=== PATIENT | female | born 1980 ===

== ENCOUNTER 2016-12-04 13:33 | Observation (INO) | payer OTHER ==
--- NOTE | 2016-12-04 14:24 | OBHP ---
Datetime: 12/04/2016 14:13 IP Adm Impression: , intrauterine IP Adm Impression Other: GDMA1 IP Admit Plan: Observation/Evaluation; Discharge home Admit Comment, IP Provider: 36yo with IUP at 33wks reports here today after evaluation from the clinic. She reported decreased movements. She was sent here by her OB practitioner for NST. NST today is reactive. She denies VB or LOF. Currently feels movements. H[place]ourt- occasional, FHR- Category 1 , Accucheck- 90 Assessment: IUP at 33wks NST Reactive Plan: For BPP D/C home if BPP normal F/U with Regular OB as scheduled. Extremities - PN: Normal Abdomen - PN: Normal Lungs - PN: Normal Heart - PN: Normal General - PN: Normal FHR - Baseline A Provider: 140 Gestation - Est Wks by US: 33.3 EGA AdmitDate IP: 33.3 Vital Signs Provider: Reviewed IP Chief Complaint: Decreased movement NICHD Variability Prov Fetus A: Moderate 6-25bpm NICHD Accel Fetus A IP Provider: 15X15 FHR Category Provider Fetus A: Category I NICHD Decel Fetus A IP Provider: None
[2016-12-04 14:29] VITALS: BMI 33.8
--- NOTE | 2016-12-04 16:45 | US ---
PROCEDURE: Obstetrical ultrasound examination HISTORY: Decreased movements COMPARISON: Not available TECHNIQUE: Transabdominal FINDINGS: The examination demonstrates a single live intrauterine gestation in cephalic presentation. The heart rate is 150 beats per minute. Normal anterior placenta is identified. There is no evidence of placenta previa. The cervix is closed and measures 3.8 cm in length. The amniotic fluid index is 11.3 cm. biometry yields a gestational age by ultrasound of 35 weeks 0 days. The LILIANE is 01/08/2017. The EFW is 2502 g. No gross anatomic abnormality is identified. A biophysical profile examination yields a score of 6 out of 8. movement was diminished. IMPRESSION: Single live intrauterine gestation of approximately 35 weeks 0 days gestational age. cardiac activity detected and heart rate is 150 beats per minute. Anterior placenta. No previa. Cephalic presentation. Cervix closed. Biophysical profile score 6 out of 8.
[2016-12-04] MEDS ORDERED: Betamethasone Soluspan 30 mg/5mL Inj Susp IM STA (20:48)
[2016-12-04 21:36] LABS: BASO % 0.3 % (0.0-2.0); EOS # 0.4 K/uL (0.0-0.7); EOS % 3.3 % (0.0-4.0); HEMATOCRIT 34.5 % (34.0-47.0); LYMPH # 2.6 K/uL (1.0-4.3); LYMPH % 21.8 % (20.0-40.0); MEAN CELL VOLUME 83.2 fL (81.0-99.0); MEAN CORPUSCULAR HEMOGLOBIN 27.7 pg (27.0-31.0); MEAN CORPUSCULAR HGB CONC 33.3 g/dL (33.0-37.0); MEAN PLATELET VOLUME 9.7 fL (7.2-11.7); MONO # 1.1 K/uL (0.0-0.8); MONO % 9.1 % (0.0-10.0); NRBC % 0.2 % (0.0-2.0); RED CELL DISTRIBUTION WIDTH 13.5 % (11.5-14.5); WHITE BLOOD COUNT 11.9 K/uL (4.8-10.8)
[2016-12-04 21:46] LABS: CHLORIDE 103 mmol/L (98-107)
[2016-12-04 21:47] LABS: POTASSIUM 3.9 mmol/L (3.6-5.2); RBC URINE 5 /hpf (0-3); SODIUM 134 mmol/L (132-148); URINE BACTERIA OCC (<OCC); URINE BILIRUBIN NEGATIVE (NEGATIVE); URINE COLOR Yellow (YELLOW); URINE GLUCOSE (UA) 1+ mg/dL (Normal); URINE KETONE NEGATIVE (NEGATIVE); URINE LEUKOCYTE ESTERASE 3+ Leu/uL (Negative); URINE PROTEIN NEGATIVE (NEGATIVE); URINE UROBILINOGEN NORMAL mg/dL (0.2-1.0); WBC URINE 41 /hpf (0-5)
[2016-12-04 21:48] LABS: URINE BLOOD TRACE (NEGATIVE)
[2016-12-04 21:49] LABS: ALB/GLOB RATIO 1.1 (1.0-2.1); AST/SGOT 33 U/L (14-36); BILIRUBIN,TOTAL 0.5 mg/dL (0.2-1.3); BLOOD UREA NITROGEN 8 mg/dL (7-17); CARBON DIOXIDE 20 mmol/L (22-30); GFR AFRICAN-AMERICAN > 60; TOTAL PROTEIN 6.9 g/dL (6.3-8.3)
[2016-12-04 21:50] LABS: ALKALINE PHOSPHATASE 103 U/L (38-126); ALT/SGPT 32 U/L (9-52); CALCIUM 9.6 mg/dl (8.6-10.4); GLUCOSE,RANDOM 136 mg/dL (65-105)
[2016-12-05] MEDS ORDERED: (Novolin R) Insulin Human Regular 100 units/ml vial SC ONE ×3 (07:00→21:25)
--- NOTE | 2016-12-05 10:44 | US ---
PROCEDURE: Obstetrical ultrasound examination and limited biophysical profile. HISTORY: decrease movement COMPARISON: 12/04/2016 TECHNIQUE: Transabdominal FINDINGS: Single live intrauterine gestation in cephalic presentation. heart rate 146 0.25 beats per minute. Anterior placenta. No previa. Cervix closed. Cervix measures 5.0 cm in length. limb motion observed grossly. biometry yields ultrasound age of 35 weeks 1 day. LILIANE by ultrasound is 01/08/2017. EFW is 2761 g. Limited review of anatomy demonstrates no gross abnormality. Four-chamber heart observed. Fluid distends the stomach and urinary bladder. No hydronephrosis. Three-vessel umbilical cord. Anterior abdominal wall intact. Umbilical arterial duplex Doppler yields S/ D ratio of 2.1. Limited biophysical profile examination yields a score of 8 out of 8. IMPRESSION: Biophysical profile score 8 out of 8. Additional findings as above.
[2016-12-05] MEDS ORDERED: Betamethasone Soluspan 30 mg/5mL Inj Susp IM STA (21:23)
[2016-12-06 08:15] VITALS: RESP 18; TEMP 97.8; O2SAT 96
[2016-12-06 19:07] VITALS: BP 114/71; PULSE 91
--- NOTE | 2016-12-07 11:26 | CP.PCM.HP ---
History of Present Illness - History of Present Illness History of Present Illness: 36 yo with Uncontrolled Diabetes admiited with BPP 6/10 Present on Admission - Present on Admission Any Indicators Present on Admission: Yes History of DVT/PE: No History of Uncontrolled Diabetes: Yes Urinary Catheter: No Decubitus Ulcer Present: No History Surgical Site Infection Following: None Past Patient History - Tetanus Immunizations Tetanus Immunization: Unknown - Past Medical History & Family History Past Medical History?: No - Past Social History Smoking Status: Never Smoked Chewing Tobacco Use: No Cigar Use: No Alcohol: Occasional Drugs: Denies Home Situation {Lives}: With Family Domestic Violence: Negative - CARDIAC Hx Cardiac Disorders: No Hx Angina: No Hx Atrial Fibrillation: No Hx Cardia Arrhythmia: No Hx Circulatory Problems: No Hx Congestive Heart Failure: No Hx Heart Attack: No Hx Heart Murmur: No Hx Heart Transplant: No Hx Hypercholesterolemia: No Hx Hypertension: No Hx Hypotension: No Hx Internal Defibrillator: No Hx Mitral Valve Prolapse: No Hx Pacemaker: No Hx Peripheral Edema: No Hx Peripheral Vascular Disease: No - PULMONARY Hx Respiratory Disorders: No Hx Asthma: No Hx Bronchitis: No Hx Chronic Obstructive Pulmonary Disease (COPD): No Hx Emphysema: No Hx Lung Cancer: No Hx Pneumonia: No Hx Pulmonary Edema: No Hx Pulmonary Embolism: No Hx Respiratory Aspiration: No - HEENT Hx HEENT Problems: No Hx Blind: No Hx Cataracts: No Hx Deafness: No Hx Difficulty Chewing: No Hx Epistaxis: No Hx Glaucoma: No Hx Macular Degeneration: No Hx Sinusitis: No - RENAL Hx Chronic Kidney Disease: No Hx Dialysis: No Hx Kidney Stones: No Hx Neurogenic Bladder: No Hx Pyelonephritis: No Hx Renal (Kidney) Cancer: No Hx Renal Failure: No - ENDOCRINE/METABOLIC Hx Endocrine Disorders: No Hx Adrenal Cancer: No Hx Diabetes Insipidus: No Hx Diabetes Mellitus Type 1: No Hx Diabetes Mellitus Type 2: No Hx Hyperthyroidism: No Hx Hypothyroidism: No Hx Systemic Lupus Erythematosus: No Other/Comment: Gestational Diabetes - HEMATOLOGICAL/ONCOLOGICAL Hx Blood Disorders: No Hx AIDS: No Hx Anemia: No Hx Blood Transfusions: No Hx Blood Transfusion Reaction: No Hx Bruising: No Hx Cancer: No Hx Chemotherapy: No Hx Cirrhosis: No Hx Gum Bleeding: No Hx Hemophilia: No Hx Hepatitis A: No Hx Hepatitis B: No Hx Hepatitis C: No Hx Human Immunodeficiency Virus (HIV): No Hx Leukemia: No Hx Lymphoma: No Hx Metastesis: No - PSYCHIATRIC Hx Depression: No Meds Home Medications: Home Medication List Medication Instructions Recorded Confirmed Type metFORMIN [glucOPHAGE] 500 mg PO BID #10 tab 12/06/16 Rx Allergies/Adverse Reactions: Allergies Allergy/AdvReac Type Severity Reaction Status Date / Time No Known Allergies Allergy Verified 12/04/16 14:29 Physical Exam - Constitutional Appears: Well - Head Exam Head Exam: ATRAUMATIC, NORMAL INSPECTION, NORMOCEPHALIC - Eye Exam Eye Exam: EOMI, Normal appearance, PERRL Pupil Exam: NORMAL ACCOMODATION, PERRL - ENT Exam ENT Exam: Mucous Membranes Moist, Normal Exam - Neck Exam Neck exam: Positive for: Normal Inspection - Respiratory Exam Respiratory Exam: Clear to Auscultation Bilateral, NORMAL BREATHING PATTERN - Cardiovascular Exam Cardiovascular Exam: REGULAR RHYTHM - GI/Abdominal Exam GI & Abdominal Exam: Normal Bowel Sounds, Soft. absent: Tenderness - Rectal Exam Rectal Exam: NORMAL INSPECTION - Exam Exam: Circumcision, NORMAL INSPECTION External exam: NORMAL EXTERNAL EXAM Speculum exam: NORMAL SPECULUM EXAM Bimanual exam: NORMAL BIMANUAL EXAM - Extremities Exam Extremities exam: Positive for: normal inspection - Back Exam Back exam: NORMAL INSPECTION - Neurological Exam Neurological exam: Alert, CN II-XII Intact, Normal Gait, Oriented x3, Reflexes Normal - Psychiatric Exam Psychiatric exam: Normal Affect, Normal Mood - Skin Skin Exam: Dry, Intact, Normal Color, Warm Results - Vital Signs Recent Vital Signs: Last Vital Signs Temp 97.8 F 12/06/16 19:06 Pulse 91 H 12/06/16 19:06 Resp 18 12/06/16 19:06 BP 114/71 12/06/16 19:06 Pulse Ox 96 12/06/16 19:06 - Labs Result Diagrams: 12/04/16 21:33 12/04/16 21:33 - Impressions Impression: 1. 36 YO AT 33 wks gestation with Uncontrolled Diabetes 2. BPP 09/03 3. Steroid Injection for Lung Maturity Assessment & Plan (1) Gestational diabetes mellitus (GDM) affecting Status: Acute Priority: High - Assessment and Plan (Free Text) Assessment: 36 YO with GDM A1 BPP 09/05 Plan: Repeat BPP Nst Prolong monitoring Steroid for lung maturity - Date & Time Date: 12/04/16 Time: 23:00 Decision To Admit - . Bed Request Type: VERIFIER
--- NOTE | 2016-12-07 11:37 | PCM.IRP ---
Chief Complaint: 36 yo with Uncontrolled Diabetes, BPP 6/10 History of Present Illness - History of Present Illness History of Present Illness: GDMA2 Subjective - Subjective Subjective: Patient feels better. She is feeling the baby move Review of Systems - Constitutional Constitutional: UN - EENT Eyes: UNREMARKABLE Ears: UNREMARKABLE Nose/Mouth/Throat: UNREMARKABLE - Breasts Breasts: UNREMARKABLE - Cardiovascular Cardiovascular: UNREMARKABLE - Respiratory Respiratory: UNREMARKABLE - Gastrointestinal Gastrointestinal: UNREMARKABLE - Genitourinary Genitourinary: UNREMARKABLE - Reproductive: Female Reproductive:Female: UNREMARKABLE - Menstruation Menstruation: UNREMARKABLE - Musculoskeletal Musculoskeletal: UNREMARKABLE - Integumentary Integumentary: UNREMARKABLE - Neurological Neurological: UNREMARKABLE - Psychiatric Psychiatric: UNREMARKABLE - Endocrine Endocrine: UNREMARKABLE - Hematologic/Lymphatic Hematologic: UNREMARKABLE Objective - Vital Signs/Intake and Output Vital Signs (last 24 hours): Vital Signs - 24 hr 12/06/16 19:06 Temperature 97.8 F Pulse Rate 91 H Respiratory 18 Rate Blood Pressure 114/71 O2 Sat by Pulse 96 Oximetry - Head Exam Head Exam: ATRAUMATIC, NORMAL INSPECTION, NORMOCEPHALIC - Eye Exam Eye Exam: EOMI, Normal appearance, PERRL Pupil Exam: NORMAL ACCOMODATION, PERRL - GI/Abdominal Exam GI & Abdominal Exam: Normal Bowel Sounds - Rectal Exam Rectal Exam: NORMAL INSPECTION - Exam Exam: Circumcision, NORMAL INSPECTION External exam: NORMAL EXTERNAL EXAM Speculum exam: NORMAL SPECULUM EXAM Bimanual exam: NORMAL BIMANUAL EXAM - Neurological Exam Neurological exam: Alert, CN II-XII Intact, Normal Gait, Oriented x3, Reflexes Normal - Psychiatric Exam Psychiatric exam: Normal Affect, Normal Mood - Skin Skin Exam: Dry, Intact, Normal Color, Warm Assessment/Plan (1) Gestational diabetes mellitus (GDM) affecting Status: Acute Priority: High - Assessment and Plan (Free Text) Assessment: 36 yo with Uncontrolled Diabestes GDM A2 STARTED Medformin 500 BID Plan: Continue current treatment - Date & Time Date: 12/05/16 Time: 10:50
--- NOTE | 2016-12-07 11:40 | CP.PCM.PN ---
Subjective - Date & Time of Evaluation Date of Evaluation: 12/06/16 Time of Evaluation: 11:39 - Subjective Subjective: 36 yo S/P GDMA2 Objective - Vital Signs/Intake and Output Vital Signs (last 24 hours): Temp Pulse Resp BP Pulse Ox 97.8 F 91 H 18 114/71 96 12/06/16 19:06 12/06/16 19:06 12/06/16 19:06 12/06/16 19:06 12/06/16 19:06 - Constitutional Appears: Well - Head Exam Head Exam: ATRAUMATIC, NORMAL INSPECTION, NORMOCEPHALIC - Eye Exam Eye Exam: EOMI, Normal appearance, PERRL Pupil Exam: NORMAL ACCOMODATION, PERRL - ENT Exam ENT Exam: Mucous Membranes Moist, Normal Exam - Neck Exam Neck Exam: Full ROM, Normal Inspection. absent: Lymphadenopathy - Respiratory Exam Respiratory Exam: Clear to Ausculation Bilateral, NORMAL BREATHING PATTERN - Cardiovascular Exam Cardiovascular Exam: REGULAR RHYTHM, +S1, +S2. absent: Murmur - GI/Abdominal Exam GI & Abdominal Exam: Soft, Normal Bowel Sounds. absent: Tenderness - Rectal Exam Rectal Exam: NORMAL INSPECTION - Exam Exam: Circumcision, NORMAL INSPECTION External exam: NORMAL EXTERNAL EXAM Speculum exam: NORMAL SPECULUM EXAM Bimanual exam: NORMAL BIMANUAL EXAM - Extremities Exam Extremities Exam: Full ROM, Normal Capillary Refill, Normal Inspection. absent : Joint Swelling, Pedal Edema - Back Exam Back Exam: NORMAL INSPECTION - Neurological Exam Neurological Exam: Alert, Awake, CN II-XII Intact, Normal Gait, Oriented x3 - Psychiatric Exam Psychiatric exam: Normal Affect, Normal Mood - Skin Skin Exam: Dry, Intact, Normal Color, Warm Assessment and Plan (1) Gestational diabetes mellitus (GDM) affecting Status: Acute - Assessment and Plan (Free Text) Assessment: 36 yo GDMA2 Plan: Discharge home with Metformin 500 mg BID BPP on Wednesday
== END 2016-12-06 13:30 | disposition home or self-care (01) ==
LOC: C.EROB 13:33 → C.4D 21:34 → UNDOADMIN 21:34 → C.4D 21:36 → C.4M 12-05 22:46
PROVIDERS: ADMIT Obstetrics & Gynecology; ATTEND Obstetrics & Gynecology
DX: O24.419 Gestational diabetes mellitus in pregnancy, unspecified control (principal); Z3A.33 33 weeks gestation of pregnancy
CPT/HCPCS: 76815; 76818; 80053; 81001; 82948; 83036; 85025; G0378; J0702

== ENCOUNTER 2016-12-22 14:22 | Emergency (ER) | payer OTHER ==
[2016-12-22 19:42] VITALS: BP 114/79; PULSE 87; RESP 18; TEMP 97.9
--- NOTE | 2016-12-22 20:20 | OBHP ---
Datetime: 12/22/2016 15:16 IP Adm Impression Other: nst reactive IP Admit Plan: Discharge home Admit Comment, IP Provider: chief complaint- evalaution HPI Patient at [address] bradley for nst due to gestational diabetes cousre complicated by AMA; GDM Exam see exam section A/P Patient here for nst at 36 wfa due to ama and fdm -nst reactive -patient discharegd home follow up with dr bradley in 3 days Pelvic Type - PN: Adequate Extremities - PN: Normal Abdomen - PN: Normal Back - PN: Normal Lungs - PN: Normal Heart - PN: Normal Neurologic - PN: Normal General - PN: Normal Contraction Comments Provider: occ Gestation - Est Wks by US: 35.0 EGA AdmitDate IP: 36.0 Vital Signs Provider: Reviewed; Within Normal Limits IP Chief Complaint: evaluation FHR Category Provider Fetus A: Category I Genitourinary Exam: Normal DTRs - PN: Normal
== END 2016-12-22 15:35 | disposition home or self-care (01) ==
LOC: C.EROB 14:22
DX: Z36 Encounter for antenatal screening of mother (principal)

== ENCOUNTER 2016-12-30 17:53 | Inpatient (IN) | payer OTHER ==
[2016-12-30 18:22] VITALS: BMI 35.1
[2016-12-30] MEDS ORDERED: Nalbuphine 20 mg/ml Inj (1 ml) IVP PRN (18:30)
[2016-12-30] MEDS ORDERED: Lactated Ringer's 1,000 ML IV SCH (18:30)
[2016-12-30 18:53] LABS: BASO # 0.1 K/uL (0.0-0.2); BASO % 0.6 % (0.0-2.0); EOS # 0.4 K/uL (0.0-0.7); EOS % 3.9 % (0.0-4.0); HEMATOCRIT 36.2 % (34.0-47.0); LYMPH # 2.7 K/uL (1.0-4.3); LYMPH % 24.2 % (20.0-40.0); MEAN CELL VOLUME 83.3 fL (81.0-99.0); MEAN CORPUSCULAR HEMOGLOBIN 28.3 pg (27.0-31.0); MEAN PLATELET VOLUME 10.4 fL (7.2-11.7); MONO # 0.9 K/uL (0.0-0.8); MONO % 7.9 % (0.0-10.0); RED CELL DISTRIBUTION WIDTH 14.3 % (11.5-14.5)
--- NOTE | 2016-12-30 18:54 | OBADHP ---
Datetime: 12/30/2016 18:47 Admit Comment, IP Provider: g1po at 37+weeks here for induction send by dr bradley approved by Dr Lori ibarra,no ctxs, vb, lof,+fm obhx primi pmh gdma2 med metfomin all nkda psh den soch de ve closed/20/-3 a/p at 37weeks/gdma2 /macrosomia admit to l_d npo/ivf labs cervidil gbs prophylaxsis cont joe and efm anticpate Pelvic Type - PN: Adequate Extremities - PN: Normal Abdomen - PN: Normal Back - PN: Normal Breast - PN: Normal Lungs - PN: Normal Heart - PN: Normal Thyroid - PN: Normal Neurologic - PN: Normal HEENT - PN: Normal General - PN: Normal FHR - Baseline A Provider: 130 Contraction Comments Provider: nne Comments, ACOG Physical Exam: gravid,non tender ext no edema,no calf ten IP Hx Assessment: The History has been Reviewed and is Current Vital Signs Provider: Reviewed; Within Normal Limits IP Chief Complaint: Uterine contractions; Decreased movement NICHD Variability Prov Fetus A: Moderate 6-25bpm NICHD Accel Fetus A IP Provider: 15X15 FHR Category Provider Fetus A: Category I Dilatation, Provider: 0 Effacement, Provider: 30 Station, Provider: -3 Genitourinary Exam: Normal DTRs - PN: Normal IP Adm Impression: Term, intrauterine IP Admit Plan: Admit to unit; Initiate labor induction protocol Datetime: 12/22/2016 15:16 IP Adm Impression Other: nst reactive Gestation - Est Wks by US: 35.0 EGA AdmitDate IP: 36.0 Datetime: 12/04/2016 14:13 NICHD Decel Fetus A IP Provider: None
[2016-12-30 19:02] LABS: CHLORIDE 100 mmol/L (98-107); POTASSIUM 3.6 mmol/L (3.6-5.2); SODIUM 131 mmol/L (132-148)
[2016-12-30 19:04] LABS: ALB/GLOB RATIO 1.1 (1.0-2.1); AST/SGOT 28 U/L (14-36); BILIRUBIN,TOTAL 0.6 mg/dL (0.2-1.3); CARBON DIOXIDE 21 mmol/L (22-30); GFR AFRICAN-AMERICAN > 60; TOTAL PROTEIN 7.2 g/dL (6.3-8.3)
[2016-12-30 19:05] LABS: ALKALINE PHOSPHATASE 133 U/L (38-126); ALT/SGPT 29 U/L (9-52); BLOOD UREA NITROGEN 9 mg/dL (7-17); CALCIUM 9.5 mg/dl (8.6-10.4); GLUCOSE,RANDOM 132 mg/dL (65-105)
[2016-12-30 20:48] LABS: RBC URINE < 1 /hpf (0-3); URINE BILIRUBIN NEGATIVE (NEGATIVE); URINE BLOOD NEGATIVE (NEGATIVE); URINE COLOR Yellow (YELLOW); URINE GLUCOSE (UA) NORMAL (Normal); URINE KETONE NEGATIVE (NEGATIVE); URINE LEUKOCYTE ESTERASE TRACE Leu/uL (Negative); URINE PROTEIN NEGATIVE (NEGATIVE); URINE UROBILINOGEN NORMAL mg/dL (0.2-1.0); WBC URINE < 1 /hpf (0-5)
[2016-12-31] MEDS ORDERED: Nalbuphine 20 mg/ml Inj (1 ml) ONE (03:11)
[2016-12-31] MEDS ORDERED: Penicillin G 5 Million Unit Vial IVPB ONE ×2 (10:51→11:35)
[2016-12-31] MEDS ORDERED: Oxytocin 30 UNIT 30 UNITS/500 ML BAG IV PRN (14:01)
[2016-12-31] MEDS ORDERED: Oxytocin 30 UNIT 30 UNITS/500 ML BAG IV ONE (14:11)
[2016-12-31] MEDS ORDERED: Sodium Citrate/Citric Acid 15 ml Sol ONE (18:21)
[2016-12-31] MEDS ORDERED: cefOXitin IV 2 gm in Dextrose 2 GM/50 ML BAG IVPB ONE ×2 (18:23→18:49)
[2016-12-31] MEDS ORDERED: Morphine 1 mg/ml preservative-free Inj(Duramorph) ONE (18:29)
[2016-12-31] MEDS ORDERED: Midazolam 2 MG/2 ML VIAL ONE (18:35)
[2016-12-31] MEDS ORDERED: Sodium Citrate/Citric Acid 15 ml Sol PO STA (18:36)
[2016-12-31] MEDS ORDERED: Oxytocin 20 units in LR 2,000 ML IV ONE (18:45)
[2016-12-31] MEDS ORDERED: Oxytocin 10 Units/ml Inj ONE (19:20)
[2016-12-31] MEDS ORDERED: DiphenhydrAMINE 50 mg/ml Inj IVP PRN (20:21)
[2017-01-01 09:05] LABS: BASO # 0.1 K/uL (0.0-0.2); BASO % 0.7 % (0.0-2.0); EOS # 0.1 K/uL (0.0-0.7); EOS % 0.5 % (0.0-4.0); HEMATOCRIT 35.1 % (34.0-47.0); LYMPH # 1.1 K/uL (1.0-4.3); LYMPH % 9.2 % (20.0-40.0); MEAN CELL VOLUME 84.1 fL (81.0-99.0); MEAN CORPUSCULAR HGB CONC 33.3 g/dL (33.0-37.0); MEAN PLATELET VOLUME 10.2 fL (7.2-11.7); MONO # 0.9 K/uL (0.0-0.8); MONO % 7.5 % (0.0-10.0); PLATELET COUNT 162 K/uL (130-400); RED CELL DISTRIBUTION WIDTH 13.9 % (11.5-14.5)
[2017-01-01] MEDS: Prenatal Multivit/Folic Acid/Iron Tab PO SCH (09:36)
[2017-01-01] MEDS: Folic Acid/Ascorbic Acid/Ferrous Sulfate 1 Tab PO SCH (09:36)
[2017-01-01] MEDS: Simethicone 80 mg Chewtab PO SCH ×3 (09:36→17:47)
[2017-01-01] MEDS: Oxycodone/Acetaminophen 5/325 mg Tab PO PRN (09:39)
[2017-01-01 09:54] LABS: EOSINOPHIL 1 % (0-4); NEUTROPHIL 85 % (50-75); TOTAL CELLS COUNTED 100
[2017-01-01 22:27] LABS: URINE BILIRUBIN NEGATIVE (NEGATIVE); URINE COLOR Straw (YELLOW); URINE GLUCOSE (UA) NORMAL (Normal); URINE KETONE NEGATIVE (NEGATIVE); URINE LEUKOCYTE ESTERASE 1+ Leu/uL (Negative); URINE PROTEIN NEGATIVE (NEGATIVE); URINE UROBILINOGEN NORMAL mg/dL (0.2-1.0); WBC URINE 6 /hpf (0-5)
[2017-01-01 22:33] LABS: RBC URINE 4 /hpf (0-3)
[2017-01-01 22:35] LABS: URINE BLOOD 2+ (NEGATIVE)
[2017-01-02] MEDS: Simethicone 80 mg Chewtab PO SCH ×4 (00:56→21:27)
[2017-01-02] MEDS: Oxycodone/Acetaminophen 5/325 mg Tab PO PRN ×2 (04:40→17:08)
[2017-01-02 08:08] LABS: BASO % 0.3 % (0.0-2.0); EOS # 0.2 K/uL (0.0-0.7); EOS % 1.7 % (0.0-4.0); HEMATOCRIT 32.8 % (34.0-47.0); LYMPH # 1.7 K/uL (1.0-4.3); LYMPH % 13.3 % (20.0-40.0); MEAN CELL VOLUME 83.7 fL (81.0-99.0); MEAN CORPUSCULAR HEMOGLOBIN 28.6 pg (27.0-31.0); MEAN CORPUSCULAR HGB CONC 34.1 g/dL (33.0-37.0); MEAN PLATELET VOLUME 9.6 fL (7.2-11.7); MONO # 1.1 K/uL (0.0-0.8); MONO % 8.2 % (0.0-10.0); RED CELL DISTRIBUTION WIDTH 14.4 % (11.5-14.5); WHITE BLOOD COUNT 12.8 K/uL (4.8-10.8)
[2017-01-02] MEDS ORDERED: Influenza Vaccine 60 mcg/0.5 mL SYR (4YR UP) IM ONE (08:51)
[2017-01-02] MEDS: Folic Acid/Ascorbic Acid/Ferrous Sulfate 1 Tab PO SCH (09:16)
[2017-01-02] MEDS: Prenatal Multivit/Folic Acid/Iron Tab PO SCH (09:16)
[2017-01-03] MEDS: Oxycodone/Acetaminophen 5/325 mg Tab PO PRN (01:30)
[2017-01-03 08:18] VITALS: PULSE 74; RESP 18; TEMP 97.7; O2SAT 99
[2017-01-03] MEDS: Folic Acid/Ascorbic Acid/Ferrous Sulfate 1 Tab PO SCH (10:32)
[2017-01-03] MEDS: Prenatal Multivit/Folic Acid/Iron Tab PO SCH (10:33)
[2017-01-03] MEDS: Simethicone 80 mg Chewtab PO SCH ×3 (10:35→17:58)
--- NOTE | 2017-01-03 17:38 | CP.PCM.DIS ---
Provider - Provider Date of Admission: 12/30/16 18:23 Attending physician: Geraldine Maki MD Primary care physician: Dr. Maki Time Spent in preparation of Discharge (in minutes): 40 Diagnosis - Discharge Diagnosis (1) S/P Status: Acute Hospital Course - Lab Results Lab Results: Micro Results 01/01/17 22:52 Urine,Clean Catch Urine Culture - Final Enterobacter Cloacae Ssp Cloac Most Recent Lab Values WBC 12.8 K/uL (4.8-10.8) H 01/02/17 07:52 RBC 3.91 Mil/uL (3.80-5.20) 01/02/17 07:52 Hgb 11.2 g/dL (11.0-16.0) 01/02/17 07:52 Hct 32.8 % (34.0-47.0) L 01/02/17 07:52 MCV 83.7 fL (81.0-99.0) 01/02/17 07:52 MCH 28.6 pg (27.0-31.0) 01/02/17 07:52 MCHC 34.1 g/dL (33.0-37.0) 01/02/17 07:52 RDW 14.4 % (11.5-14.5) 01/02/17 07:52 Plt Count 186 K/uL (130-400) 01/02/17 07:52 MPV 9.6 fL (7.2-11.7) 01/02/17 07:52 Neut % (Auto) 76.5 % (50.0-75.0) H 01/02/17 07:52 Lymph % (Auto) 13.3 % (20.0-40.0) L 01/02/17 07:52 [place] % (Auto) 8.2 % (0.0-10.0) 01/02/17 07:52 Eos % (Auto) 1.7 % (0.0-4.0) 01/02/17 07:52 Baso % (Auto) 0.3 % (0.0-2.0) 01/02/17 07:52 Neut # 9.8 K/uL (1.8-7.0) H 01/02/17 07:52 Lymph # 1.7 K/uL (1.0-4.3) 01/02/17 07:52 [place] # 1.1 K/uL (0.0-0.8) H 01/02/17 07:52 Eos # 0.2 K/uL (0.0-0.7) 01/02/17 07:52 Baso # 0.0 K/uL (0.0-0.2) 01/02/17 07:52 Neutrophils % (Manual) 85 % (50-75) H 01/01/17 09:00 Band Neutrophils % 4 % (0-2) H 01/01/17 09:00 Lymphocytes % (Manual) 5 % (20-40) L 01/01/17 09:00 Monocytes % (Manual) 5 % (0-10) 01/01/17 09:00 Eosinophils % (Manual) 1 % (0-4) 01/01/17 09:00 Platelet Estimate Normal (NORMAL) 01/01/17 09:00 Sodium 131 mmol/L (132-148) L 12/30/16 18:50 Potassium 3.6 mmol/L (3.6-5.2) 12/30/16 18:50 Chloride 100 mmol/L (98-107) 12/30/16 18:50 Carbon Dioxide 21 mmol/L (22-30) L 12/30/16 18:50 Anion Gap 14 (10-20) 12/30/16 18:50 BUN 9 mg/dL (7-17) 12/30/16 18:50 Creatinine 0.7 mg/dL (0.7-1.2) 12/30/16 18:50 Est GFR ( Amer) > 60 12/30/16 18:50 Est GFR (Non-Af Amer) > 60 12/30/16 18:50 POC Glucose (mg/dL) 74 mg/dL (65-110) 12/31/16 14:32 Random Glucose 132 mg/dL (65-105) H 12/30/16 18:50 Calcium 9.5 mg/dl (8.6-10.4) 12/30/16 18:50 Total Bilirubin 0.6 mg/dL (0.2-1.3) 12/30/16 18:50 AST 28 U/L (14-36) 12/30/16 18:50 ALT 29 U/L (9-52) 12/30/16 18:50 Alkaline Phosphatase 133 U/L (38-126) H D 12/30/16 18:50 Total Protein 7.2 g/dL (6.3-8.3) 12/30/16 18:50 Albumin 3.7 g/dL (3.5-5.0) 12/30/16 18:50 Globulin 3.5 gm/dL (2.2-3.9) 12/30/16 18:50 Albumin/Globulin Ratio 1.1 (1.0-2.1) 12/30/16 18:50 Urine Color Straw (YELLOW) 01/01/17 22:20 Urine Clarity Clear (Clear) 01/01/17 22:20 Urine pH 6.0 (5.0-8.0) 01/01/17 22:20 Ur Specific [place] 1.003 (1.003-1.030) 01/01/17 22:20 Urine Protein Negative mg/dL (NEGATIVE) 01/01/17 22:20 Urine Glucose (UA) Normal mg/dL (Normal) 01/01/17 22:20 Urine Ketones Negative mg/dL (NEGATIVE) 01/01/17 22:20 Urine Blood 2+ (NEGATIVE) H 01/01/17 22:20 Urine Nitrate Negative (NEGATIVE) 01/01/17 22:20 Urine Bilirubin Negative (NEGATIVE) 01/01/17 22:20 Urine Urobilinogen Normal mg/dL (0.2-1.0) 01/01/17 22:20 Ur Leukocyte Esterase 1+ [place]/uL (Negative) H 01/01/17 22:20 Urine WBC (Auto) 6 /hpf (0-5) H 01/01/17 22:20 Urine RBC (Auto) 4 /hpf (0-3) H 01/01/17 22:20 Ur Squamous Epith Cells < 1 /hpf (0-5) 01/01/17 22:20 RPR Nonreactive (NONREACTIVE) 12/30/16 18:50 Hep Bs Antibody Negative (NEGATIVE) 12/31/16 08:39 HIV 1&2 Antibody Screen Negative (NEGATIVE) 12/30/16 20:41 Blood Type O POSITIVE 12/30/16 18:50 Antibody Screen Negative 12/30/16 18:50 - Date & Time of H&P Date of H&P: 12/31/16 Discharge Exam - Head Exam Head Exam: ATRAUMATIC, NORMAL INSPECTION, NORMOCEPHALIC - Eye Exam Eye Exam: EOMI, Normal appearance, PERRL Pupil Exam: NORMAL ACCOMODATION, PERRL - GI/Abdominal Exam GI & Abdominal Exam: Normal Bowel Sounds - Rectal Exam Rectal Exam: NORMAL INSPECTION - Exam Exam: Circumcision, NORMAL INSPECTION External exam: NORMAL EXTERNAL EXAM Speculum exam: NORMAL SPECULUM EXAM Bimanual exam: NORMAL BIMANUAL EXAM - Neurological Exam Neurological exam: Alert, CN II-XII Intact, Normal Gait, Oriented x3, Reflexes Normal - Psychiatric Exam Psychiatric exam: Normal Affect, Normal Mood - Skin Skin Exam: Dry, Intact, Normal Color, Warm Discharge Plan - Follow Up Plan Condition: GOOD Disposition: HOME/ ROUTINE Patient education suggested?: Yes Instructions: Depression (GEN), Caring for Your Baby (DC), Your Baby (DC), How to Increase Your Milk Supply (DC), and Your Diet (DC), Jaundice in Newborns (DC), Wound Healing and Your Diet (DC)
--- NOTE | 2017-01-03 17:41 | PCM.SURG1 ---
Surgeon's Initial Post Op Note - Surgeon's Notes Surgeon: Dr Maki Plug Machine Operator: Dr. Lindsey Type of Anesthesia: Spinal Anesthesia Administered By: Dr. Diaz Pre-Operative Diagnosis: 36 yo at 37 wks gestation with Uncontrolled Gestational Diabetes, Suspected Macrosomia, Failure of Induction Operative Findings: Primary LTCS Post-Operative Diagnosis: sAME ABOVE Operation Performed: Primary Ltcs Specimen/Specimens Removed: Cord ph. placenta Estimated Blood Loss: EBL {In ML}: 600 Blood Products Given: N/A Drains Used: No Drains Post-Op Condition: Good Date of Surgery/Procedure: 12/31/16 Time of Surgery/Procedure: 09:00
[2017-01-03 23:14] VITALS: BP 98/70
== END 2017-01-03 18:30 | disposition home or self-care (01) | DRG 651 ==
LOC: C.EROB 17:53 → C.4D 18:23 → C.4M 01-01 08:52
PROVIDERS: ADMIT Obstetrics & Gynecology; ATTEND Obstetrics & Gynecology
PROC: 10D00Z1 Extraction of Products of Conception, Low, Open Approach (ICD-10-PCS; principal; 2016-12-31)
PROC: 3E0P7GC Introduction of Other Therapeutic Substance into Female Reproductive, Via Natural or Artificial Opening (ICD-10-PCS; 2016-12-31)
DX: O24.429 Gestational diabetes mellitus in childbirth, unspecified control (principal); O36.8130 Decreased fetal movements, third trimester, not applicable or unspecified; O36.63X0 Maternal care for excessive fetal growth, third trimester, not applicable or unspecified; O61.1 Failed instrumental induction of labor; Z3A.37 37 weeks gestation of pregnancy; Z37.0 Single live birth

== ENCOUNTER 2017-03-05 16:06 | Emergency (ER) | payer OTHER ==
[2017-03-05 16:06] VITALS: BMI 35.1
[2017-03-05 16:11] VITALS: BP 135/85; PULSE 82; RESP 19; TEMP 97.9; O2SAT 97
--- NOTE | 2017-03-05 16:43 | C.PDOC ---
History Of Present Illness NEW ONSET REDNESS, SWELLING SUPRAPUB AREA "NEAR CSECTION SITE" X 3 DAYS. NO FEVER. HO GESTATIONAL DM. NO DC EXAM NONTOXIC SKIN +ERYTHEMA W POSSIBLE ABSCESS VS FIRM INDURATION BELOW CSECT INCISION + CELLULITIS INCLUDING INCISION WOUND. NO DEHISC REMAINDER NEG Time Seen by Provider: 03/05/17 16:38 Chief Complaint (Nursing): Abnormal Skin Integrity History Per: Patient History/Exam Limitations: no limitations Onset/Duration Of Symptoms: Days (3 days) Past Medical History Reviewed: Historical Data, Nursing Documentation, Vital Signs Vital Signs: Last Vital Signs Temp 97.9 F 03/05/17 16:10 Pulse 82 03/05/17 16:10 Resp 19 03/05/17 16:10 BP 135/85 03/05/17 16:10 Pulse Ox 97 03/05/17 17:06 - [facility] Procedures EXTRACTION OF POC, LOW CERVICAL, OPEN APPROACH (12/30/16) INTRODUCE OF OTH THERAP SUBST INTO FEM REPROD, VIA OPENING (12/30/16) Family History: States: No Known Family Hx - Social History Hx Alcohol Use: No Hx Substance Use: No - Immunization History Hx Influenza Vaccination: Yes Hx Pneumococcal Vaccination: Yes Review Of Systems Except As Marked, All Systems Reviewed And Found Negative. Constitutional: Negative for: Fever Genitourinary: Negative for: Dysuria, Vaginal Discharge Skin: Positive for: Other (Redness and swelling to the suprapubic area) Physical Exam - Physical Exam Appears: Non-toxic, No Acute Distress Skin: Warm, Dry, No Rash, Other ((+) Erythema with possible abscess vs firm induration below incision. Cellulitis including incision wound. No dehiscence.) Head: Atraumatic, Normacephalic Gastrointestinal/Abdominal: Soft, No Tenderness, No Guarding, No Rebound Extremity: Normal ROM, No Swelling Neurological/Psych: Oriented x3, Normal Speech, Normal Motor ED Course And Treatment O2 Sat by Pulse Oximetry: 97 (RA) Pulse Ox Interpretation: Normal Progress - Re-Evaluation Re-evaluation Note: 03/05/17 16:43 D/W DR CHOWDHURY AWARE OF ER FINDINGS, WILL EVAL IN ER 03/05/17 17:04 D/W DR CHOWDHURY S/P ASPIRATION, NO DC. DC ABX, FU PT OBGYN - Data Reviewed Data Reviewed: Old records - Continuity of Care Discussed pt. case with store sales consultant/specialty: Obstetrics/Gynecology Medical Decision Making Medical Decision Making: PLAN: * Bactrim PO * Keflex PO Disposition Counseled Patient/Family Regarding: Diagnosis, Need For Followup, Rx Given - Disposition Referrals: YOUR,PMD [Other] Disposition: HOME/ ROUTINE Disposition Time: 17:05 Condition: GOOD Prescriptions: Cephalexin [cephalexin] 500 mg PO BID #14 cap Sulfamethoxazole/Trimethoprim [Bactrim DS 800 mg-160 mg] 1 tab PO BID #14 tab Instructions: Cellulitis (ED) Forms: [employer] (Libyan) - Clinical Impression Clinical Impression: Cellulitis - Scribe Statement The provider has reviewed the documentation as recorded by the Nicolasa Alexandre Provider Attestation: All medical record entries made by the Nicolasa were at my direction and personally dictated by me. I have reviewed the chart and agree that the record accurately reflects my personal performance of the history, physical exam, medical decision making, and the department course for this patient. I have also personally directed, reviewed, and agree with the discharge instructions and disposition.
[2017-03-05] MEDS ORDERED: Tmp-Smz 800 mg-160 mg DS Tab PO STA (17:07)
[2017-03-05] MEDS ORDERED: Tmp-Smz 800 mg-160 mg DS Tab ONE (17:15)
--- NOTE | 2017-03-05 17:26 | CP.PCM.CON ---
History of Present Illness - History of Present Illness History of Present Illness: 36 year old s/p PLTCD at 37 weeks due to failed induction of labor on presents to the ED for area of swelling by her pfanenstial incision. at that time was complicated by GDMA2 and suspected macrosomia. Patient states that the swelling and redness started 3 days ago and has gotten worse. Swelling is associated with pain. Took motrin 800mg today for pain. Offers no other complaints at this time. States that she followed up with Dr Maki at both her 1 week and 6 week visit, at that time everything was normal. Denies fevers, chills, drainage, headaches, dizziness, cp, palpitations, sob, urinary symptoms, changes in bowel habits. OBGYN: Dr Maki Allergies: NKDA Medications: Denies Medical Hx: Asthma Surgical Hx: C/S x 1 Social Hx: Denies alcohol, tobacco, drug use Family Hx: Non-contributory Review of Systems - Constitutional Constitutional: absent: Chills, Fever - EENT Eyes: absent: Change in Vision - Cardiovascular Cardiovascular: absent: Chest Pain, Dyspnea, Palpitations - Respiratory Respiratory: absent: Cough, Wheezing - Gastrointestinal Gastrointestinal: absent: Constipation, Diarrhea, Nausea, Vomiting Additional comments: Pain at incision site - Genitourinary Genitourinary: absent: Dysuria - Neurological Neurological: absent: Dizziness, Headaches Past Patient History - Infectious Disease Hx of Infectious Diseases: None - Tetanus Immunizations Tetanus Immunization: Unknown - Past Medical History & Family History Past Medical History?: No - Past Social History Smoking Status: Never Smoked - CARDIAC Hx Atrial Fibrillation: No Hx Cardia Arrhythmia: No Hx Congestive Heart Failure: No Hx Hypercholesterolemia: No Hx Hypertension: No Hx Mitral Valve Prolapse: No Hx Pacemaker: No Hx Peripheral Edema: No - PULMONARY Hx Asthma: No Hx Bronchitis: No Hx Chronic Obstructive Pulmonary Disease (COPD): No Hx Emphysema: No Hx Pneumonia: No Hx Pulmonary Embolism: No - HEENT Hx HEENT Problems: No Hx Blind: No Hx Cataracts: No Hx Deafness: No Hx Difficulty Chewing: No Hx Epistaxis: No Hx Glaucoma: No Hx Macular Degeneration: No - RENAL Hx Chronic Kidney Disease: No Hx Kidney Stones: No - ENDOCRINE/METABOLIC Hx Hyperthyroidism: No Hx Hypothyroidism: No - HEMATOLOGICAL/ONCOLOGICAL Hx Anemia: No Hx Human Immunodeficiency Virus (HIV): No - PSYCHIATRIC Hx Depression: No Hx Substance Use: No - SURGICAL HISTORY Hx Surgeries: Yes Hx Section: Yes - ANESTHESIA Hx Anesthesia: Yes Hx Anesthesia Reactions: No Meds Home Medications: Home Medication List Medication Instructions Recorded Confirmed Type Cephalexin [cephalexin] 500 mg PO BID #14 cap 03/05/17 Rx Sulfamethoxazole/Trimethoprim 1 tab PO BID #14 tab 03/05/17 Rx [Bactrim DS 800 mg-160 mg] Allergies/Adverse Reactions: Allergies Allergy/AdvReac Type Severity Reaction Status Date / Time No Known Allergies Allergy Verified 03/05/17 16:11 Physical Exam - Constitutional Appears: Well, Non-toxic, No Acute Distress - Head Exam Head Exam: ATRAUMATIC, NORMAL INSPECTION - Eye Exam Eye Exam: EOMI, Normal appearance - ENT Exam ENT Exam: Mucous Membranes Moist - Respiratory Exam Respiratory Exam: NORMAL BREATHING PATTERN - Cardiovascular Exam Cardiovascular Exam: REGULAR RHYTHM - GI/Abdominal Exam GI & Abdominal Exam: Soft Additional comments: Tenderness at inferior aspect of pfannenstial incision. Area of induration and erythema noted. Incision intact with no active draining. Unable to aspirate any fluid. - Extremities Exam Extremities exam: Positive for: normal inspection - Back Exam Back exam: NORMAL INSPECTION - Neurological Exam Neurological exam: Normal Gait, Oriented x3 - Psychiatric Exam Psychiatric exam: Normal Affect, Normal Mood - Skin Skin Exam: Dry, Normal Color, Warm Results - Vital Signs Recent Vital Signs: Last Vital Signs Temp 97.9 F 03/05/17 16:10 Pulse 82 03/05/17 16:10 Resp 19 03/05/17 16:10 BP 135/85 03/05/17 16:10 Pulse Ox 97 03/05/17 17:06 - Labs Labs: Laboratory Results - last 24 hr 03/05/17 16:45 POC Glucose (mg/dL) 109 Assessment & Plan - Assessment and Plan (Free Text) Assessment: 36 year old s/p PLTCD on 12/31/16 presents with pain and swelling at C/S incision site. Area of induration likely cellulitis in origin. Plan: Cellulitis -Incision is clean and intact -No fluctuance, just induration noted at incision -Unable to aspirate any fluid -Recommending Bactrim PO -If symptoms worsen, return to ER -F/U with Dr Maki on Wednesday -Plan discussed with attending Luisa Butler DO, PGY-1
== END 2017-03-05 17:16 | disposition home or self-care (01) ==
LOC: C.ER 16:06
DX: L03.311 Cellulitis of abdominal wall (principal)